=== PATIENT | male | born 1980 | race African-American/Black ===

== ENCOUNTER 2016-10-31 19:24 | Emergency (ER) | payer BC ==
[~2016-10-31] VITALS: Ht 172.7 cm; Wt 86.2 kg
--- NOTE | ~2016-10-31 | EKG ---
[place] [address] [address] [facility] [place] [address] ELECTROCARDIOGRAM REPORT Name: ADDIEEMETERIO Sarah [facility] [id number] Admission: 10/31/16 Attend Phys: Discharge: 10/31/16 Date of : 82 Report #: [id number] THIS REPORT FOR: //name// [facility] ED Test Date: 2016-10-31 Test Time: 19:59:17 Pat Name: EMETERIO REAL Department: Room: Gender: Frit Mixer: MZOOK : 1980 Requested By: Kd Bruner Order Number: [id number] MD: Jeremias May Measurements Intervals [place] Rate: 74 P: 48 [place]: 161 QRS: 7 QRSD: 108 T: 19 QT: 367 QTc: 408 Interpretive Statements Sinus rhythm No significant abnormality Compared to ECG 06/17/2016 21:10:45 T-wave abnormality no longer present Electronically Signed On 11-01-2016 7:51:14 CDT by Jeremias May [email or web address] <ELECTRONICALLY SIGNED> By: Jeremias May MD, [facility] 11/01/16 0751 1959 58 Jeremias May MD, FACC /EPI
[~2016-10-31 19:24] MED LIST: AMLODIPINE BESY10 MG PO; AMOXICILLIN875 MG PO; ASPIRIN325; EXCEDRIN CAPLE1 EACH PO; HYDROCHLOROTHIA25 M2 PO; IBUPROFEN 200200 M1; LISINOPRIL20 MG PO; NOHOMEMEDICATIONS; NORCO 5-325 TA1 EACH PO; PEPCID20 MG PO; TYLENOL325 MG PO; ULTRAM 50MG TAB50 MG PO; VENTOLIN HFA 1818 GM INH
[2016-10-31 20:01] LABS: ABSOLUTE NEUTROPHILS 5.3 thou/uL (1.4-8.2); BASOPHILS 0.4 % (0.0-2.0); EOSINOPHILS 2.7 % (0.0-3.0); HEMATOCRIT 41.3 % (42.0-52.0); HEMOGLOBIN 14.3 gm/dL (14.0-18.0); LYMPHOCYTES 30.7 % (24.0-44.0); MANUAL DIFF NO; MCH 29.4 pg (26.0-34.0); MCHC 34.6 g/dL (28.0-37.0); MCV 84.8 fL (80.0-100.0); MONOCYTES 9.5 % (1.0-8.0); PLATELET COUNT 231 thou/uL (150-400); POLYS 56.7 % (36.0-66.0); RBC 4.88 mil/uL (4.50-6.00); WBC 9.3 thou/uL (4.0-11.0)
[2016-10-31 20:12] LABS: ANION GAP 9 mmol/L (7-16); BUN 18 mg/dL (7-18); CHLORIDE 102 mmol/L (98-107); CO2 25 mmol/L (21-32); CREATININE 1.5 mg/dL (0.6-1.3); GLUCOSE 108 mg/dL (70-99); SODIUM 136 mmol/L (136-145)
[2016-10-31 20:19] LABS: ALBUMIN 3.5 g/dL (3.4-5.0); ALKALINE PHOSPHATASE 89 U/L (46-116); MAGNESIUM 2.1 mg/dL (1.8-2.4); SGOT 34 U/L (15-37); SGPT 40 U/L (30-65); TOTAL BILIRUBIN 0.5 mg/dL (<0.1-1.0); TOTAL PROTEIN 7.5 g/dL (6.4-8.2); TROPONIN-I < 0.04 ng/mL (<0.04-0.07)
[2016-10-31] MEDS ORDERED: ZESTRIL20 MG PO (21:17)
[2016-10-31] MEDS ORDERED: NORVASC10 MG PO (21:17)
== END 2016-10-31 21:36 | disposition home or self-care (01) ==
LOC: ER 19:24
PROVIDERS: Emergency Medicine
DX: S06.0X9A Concussion with loss of consciousness of unspecified duration, initial encounter (principal); I10 Essential (primary) hypertension; N28.9 Disorder of kidney and ureter, unspecified; F17.210 Nicotine dependence, cigarettes, uncomplicated; Z88.6 Allergy status to analgesic agent; W22.8XXA Striking against or struck by other objects, initial encounter; Y93.89 Activity, other specified; Y92.89 Other specified places as the place of occurrence of the external cause; Y99.8 Other external cause status

== ENCOUNTER 2017-07-16 18:45 | Emergency (ER) | payer OTHER ==
[~2017-07-16] VITALS: Ht 177.8 cm; Wt 111.1 kg
[~2017-07-16 18:45] MED LIST changes: +NORVASC10 MG PO; +ZESTRIL20 MG PO
[2017-07-16 20:20] LABS: ABSOLUTE NEUTROPHILS 5.4 thou/uL (1.4-8.2); BASOPHILS 0.6 % (0.0-2.0); EOSINOPHILS 2.1 % (0.0-3.0); HEMATOCRIT 47.8 % (42.0-52.0); HEMOGLOBIN 16.2 gm/dL (14.0-18.0); LYMPHOCYTES 29.2 % (24.0-44.0); MCH 29.6 pg (26.0-34.0); MCHC 33.9 g/dL (28.0-37.0); MCV 87.3 fL (80.0-100.0); MONOCYTES 9.2 % (1.0-8.0); PLATELET COUNT 194 thou/uL (150-400); POLYS 58.9 % (36.0-66.0); RBC 5.48 mil/uL (4.50-6.00); RDW 13.4 % (10.5-14.5); WBC 9.1 thou/uL (4.0-11.0)
[2017-07-16 20:21] LABS: MANUAL DIFF NO
[2017-07-16 20:26] LABS: CALCIUM 8.9 mg/dL (8.5-10.1); CREATININE 1.5 mg/dL (0.7-1.3); POTASSIUM 3.1 mmol/L (3.5-5.1)
[2017-07-16] MEDS ORDERED: REGLAN 10 MG TA10 MG PO (20:54)
[2017-07-16] MEDS ORDERED: LISINOPRIL20 MG PO (20:54)
== END 2017-07-16 21:16 | disposition home or self-care (01) ==
LOC: ER 18:45
PROVIDERS: Physician Assistant
DX: I10 Essential (primary) hypertension (principal); R51 Headache; F17.210 Nicotine dependence, cigarettes, uncomplicated; Z88.6 Allergy status to analgesic agent

== ENCOUNTER 2017-09-03 18:34 | Inpatient (IN) | payer BC, OTHER ==
[~2017-09-03] VITALS: Ht 182.9 cm; Wt 107.8 kg
--- NOTE | ~2017-09-03 | EKG ---
[address] Room [address] [place] [address] ELECTROCARDIOGRAM REPORT Name: REALEMETERIO Room #: 205-P ADM IN M.R.#: [id number] Admission: 09/03/17 Attend Phys: Alexy Ruiz Discharge: Date of : 82 Report #: [id number] THIS REPORT FOR: //name// [facility] ED Test Date: 2017-09-03 Test Time: 18:51:27 Pat Name: EMETERIO REAL Department: Room: [facility] Gender: M Insurance Follow Up Representative: Graeme OWENS : 1980 Requested By: Megan Álvarez Order Number: [id number] MD: Toni Reyes Measurements Intervals [place] Rate: 68 P: 52 [place]: 148 QRS: 6 QRSD: 118 T: 76 QT: 403 QTc: 429 Interpretive Statements Sinus rhythm Left atrial enlargement Incomplete right bundle branch block Nonspecific T abnormalities, lateral leads Electronically Signed On 09-04-2017 7:45:22 HISTORY FACULTY MEMBER by Toni Reyes [email or web address] <ELECTRONICALLY SIGNED> By: Toni Reyes MD 09/04/17 0745 [id number] [id number] MD ART Mackenzie
--- NOTE | ~2017-09-03 | 2DMMODE ---
[facility] [address] [place] [address] 2 D/M-MODE ECHOCARDIOGRAM Name: EMETERIO REAL Room #: 205-P [facility] IN ..#: [id number] Admission: 09/03/17 Attend Phys: Alexy Austin Discharge: Date of : 82 Date of Service: 09/04/17 1019 Report #: [id number] THIS REPORT FOR: //name// APPROVED REPORT Study performed: 09/04/2017 09:32:14 EXAM: Comprehensive 2D, Doppler, and color-flow Echocardiogram Patient Location: Bedside Room #: [facility] Status: routine BSA: 2.31 HR: 67 bpm BP: 133/94 mmHg Other Information Study Quality: Good Indications Hypertension/HDD 2D Dimensions RVDd: 39.24 mm LVEF(%): 67.34 (>50%) IVSd: 13.89 (7-11mm) LVOT Diam: 20.67 (18-24mm) LVDd: 49.06 mm PWd: 14.46 (7-11mm) Ascending Ao: 31.94 (22-36mm) LVDs: 30.67 (25-40mm) Aortic Root: 31.37 mm IVC: 14.00 mm Mckeon's LVEF: 67.34 % Volumes Left Atrial Volume (Systole) Single Plane 4CH: 57.11 mL Single Plane 2CH: 52.26 mL LA ESV Index: 27.00 mL/m2 Aortic Valve AoV Peak Pal.: 1.55 m/s AO Peak Gr.: 9.63 mmHg LVOT Max P.49 mmHg LVOT Max V: 1.37 m/s GAURANG Vmax: 2.96 cm2 Mitral Valve E/A Ratio: 1.3 MV Decel. Time: 255.34 ms MV E Max Pal.: 0.70 m/s [facility] [employer] [place] [address] 2 D/M-MODE ECHOCARDIOGRAM Name: EMETERIO REAL Room #: 205-P [facility] IN ..#: [id number] Admission: 09/03/17 Attend Phys: Alexy Austin Discharge: Date of : 82 Date of Service: 09/04/17 1019 Report #: [id number] MV A Pal.: 0.53 m/s MV PHT: 74.05 ms IVRT: 83.04 ms Pulmonary Valve PV Peak Pal.: 1.11 m/s PV Peak Gr.: 4.94 mmHg Pulmonary Vein P Vein S: 0.50 m/s P Vein A: 0.21 m/s P Vein D: 0.24 m/s P Vein A Dur.: 120.0 msec P Vein S/D Ratio: 2.08 Left Ventricle The left ventricle is normal size. Mild concentric left ventricular hypertrophy. The left ventricular systolic function is normal. The left ventricular ejection fraction is within the normal range. LVEF is 55-60%. The left ventricular diastolic function is normal. Right Ventricle The right ventricle is normal size. The right ventricular systolic function is normal. Atria The left atrium size is normal. The right atrium size is normal. Aortic Valve The aortic valve is normal in structure. No aortic regurgitation is present. There is no aortic valvular stenosis. Mitral Valve The mitral valve is normal in structure. Trace mitral regurgitation. No evidence of mitral valve stenosis. Tricuspid Valve The tricuspid valve is normal in structure. There is no tricuspid valve regurgitation noted. Pulmonic Valve The pulmonary valve is normal in structure. There is no pulmonic valvular regurgitation. Great Vessels The aortic root is normal in size. IVC is normal in size and collapses >50% with inspiration. [address] [address] 2 D/M-MODE ECHOCARDIOGRAM Name: EMETERIO REAL Room #: 205-P [facility] IN ..#: [id number] Admission: 09/03/17 Attend Phys: Alexy Austin Discharge: Date of : 82 Date of Service: 09/04/17 1019 Report #: [id number] Pericardium There is no pericardial effusion. <Conclusion> The left ventricle is normal size. Mild Mod concentric left ventricular hypertrophy. LVEF is 55-60%. The left ventricular diastolic function is normal. The right ventricle is normal size. The left atrium size is normal. The aortic valve is normal in structure. Trace mitral regurgitation. There is no tricuspid valve regurgitation noted. The aortic root is normal in size. There is no pericardial effusion. <ELECTRONICALLY SIGNED> By: Andrey Patel MD, FACC 09/04/17 1019 1019 1019 Andrey Patel MD, FACC /INF
[~2017-09-03 18:34] MED LIST changes: +REGLAN 10 MG TA10 MG PO
[2017-09-03 18:36] VITALS: BP 208/137
[2017-09-03 19:00] LABS: ABSOLUTE NEUTROPHILS 7.1 thou/uL (1.4-8.2); BASOPHILS 0.7 % (0.0-2.0); EOSINOPHILS 1.4 % (0.0-3.0); HEMATOCRIT 45.6 % (42.0-52.0); HEMOGLOBIN 15.6 gm/dL (14.0-18.0); LYMPHOCYTES 24.6 % (24.0-44.0); MCHC 34.2 g/dL (28.0-37.0); MCV 87.7 fL (80.0-100.0); MONOCYTES 6.3 % (1.0-8.0); PLATELET COUNT 271 thou/uL (150-400); RBC 5.21 mil/uL (4.50-6.00); RDW 13.8 % (10.5-14.5); WBC 10.6 thou/uL (4.0-11.0)
[2017-09-03 19:07] LABS: ANION GAP 12 mmol/L (7-16); BUN 17 mg/dL (7-18); CALCIUM 9.1 mg/dL (8.5-10.1); CHLORIDE 102 mmol/L (98-107); CO2 25 mmol/L (21-32); CREATININE 1.6 mg/dL (0.7-1.3); GLUCOSE 102 mg/dL (74-106); POTASSIUM 3.5 mmol/L (3.5-5.1); SODIUM 139 mmol/L (136-145)
[2017-09-03 19:16] LABS: TROPONIN-I < 0.04 ng/mL (<0.06)
[2017-09-03 19:30] LABS: ALBUMIN 3.8 g/dL (3.4-5.0); DIRECT BILIRUBIN 0.2 mg/dL (<0.1-0.3); TOTAL BILIRUBIN 0.9 mg/dL (<0.1-1.0); TOTAL PROTEIN 7.5 g/dL (6.4-8.2)
[2017-09-03 20:34] LABS: AMP/METHAMP Negative (Negative); BARBITURATES Negative (Negative); BENZODIAZEPINES Negative (Negative); COCAINE Negative (Negative); METHADONE Negative (Negative); OPIATES Negative (Negative); PCP Negative (Negative)
[2017-09-03 21:44] VITALS: BP 166/111
[2017-09-03 21:55] VITALS: BP 196/111
[2017-09-03 23:58] VITALS: BP 165/97
[2017-09-04] VITALS (7 sets, daily range): BP systolic 133–159; BP diastolic 81–105
[2017-09-04 05:26] LABS: CHOLESTEROL 157 mg/dL (<200); HDL CHOLESTEROL 31 mg/dL (>40); LDL CHOLESTEROL 85 mg/dL (<100); TC:HDL 5.1 Ratio (Not establshd); TRIGLYCERIDE 209 mg/dL (<150); VLDL 42 mg/dL (<40)
[2017-09-04 05:27] LABS: SERUM ASSESSMENT Clear
[2017-09-05 04:14] LABS: HEMATOCRIT 47.4 % (42.0-52.0); HEMOGLOBIN 16.3 gm/dL (14.0-18.0); MCH 29.9 pg (26.0-34.0); MCHC 34.3 g/dL (28.0-37.0); MCV 87.2 fL (80.0-100.0); RBC 5.44 mil/uL (4.50-6.00); RDW 13.6 % (10.5-14.5); WBC 10.1 thou/uL (4.0-11.0)
[2017-09-05 04:29] LABS: CALCIUM 8.5 mg/dL (8.5-10.1); CREATININE 1.5 mg/dL (0.7-1.3); POTASSIUM 3.5 mmol/L (3.5-5.1)
[2017-09-05 04:32] VITALS: BP 151/90
[2017-09-05 08:37] VITALS: BP 139/78
[2017-09-05 11:35] VITALS: BP 147/103
[2017-09-05 15:30] VITALS: BP 164/106
[2017-09-05 20:10] VITALS: BP 153/105
[2017-09-05 23:59] VITALS: BP 150/92
[2017-09-06 05:04] VITALS: BP 153/99
[2017-09-06 07:58] VITALS: BP 131/88
[2017-09-06] MEDS ORDERED: CARDURA4 MG PO ×2 (10:27)
[2017-09-06] MEDS ORDERED: LISINOPRIL10 MG PO ×2 (10:27)
[2017-09-06 11:22] VITALS: BP 131/88
[2017-09-06 11:32] VITALS: BP 136/89
== END 2017-09-06 12:40 | disposition home or self-care (01) | DRG 305 ==
LOC: ER 18:34 → 2N 20:41 → EROBS 20:41 → 2N 21:41
PROVIDERS: Emergency Medicine; Hospitalist; Nurse Practitioner; Physician Assistant
DX: I16.0 Hypertensive urgency (principal); I16.1 Hypertensive emergency; I12.9 Hypertensive chronic kidney disease with stage 1 through stage 4 chronic kidney disease, or unspecified chronic kidney disease; N18.3 Chronic kidney disease, stage 3 (moderate); Z91.19 Patient's noncompliance with other medical treatment and regimen; Z82.49 Family history of ischemic heart disease and other diseases of the circulatory system; Z87.81 Personal history of (healed) traumatic fracture; Z79.899 Other long term (current) drug therapy; Z88.8 Allergy status to other drugs, medicaments and biological substances; Z87.891 Personal history of nicotine dependence; Z28.21 Immunization not carried out because of patient refusal
CPT/HCPCS: 10081

== ENCOUNTER 2017-09-07 09:40 | Emergency (ER) | payer BC, OTHER ==
[~2017-09-07] VITALS: Ht 182.9 cm; Wt 106.1 kg
[~2017-09-07 09:40] MED LIST changes: +CARDURA4 MG PO; +LISINOPRIL10 MG PO
[2017-09-07 11:09] VITALS: BP 128/86
== END 2017-09-07 11:10 | disposition home or self-care (01) ==
LOC: ER 09:40
DX: R04.0 Epistaxis (principal); I10 Essential (primary) hypertension; Z88.6 Allergy status to analgesic agent; Z88.8 Allergy status to other drugs, medicaments and biological substances; Z87.891 Personal history of nicotine dependence

== ENCOUNTER 2017-09-08 10:01 | Emergency (ER) | payer BC, OTHER ==
[~2017-09-08] VITALS: Ht 182.9 cm; Wt 106.1 kg
[2017-09-08 10:56] VITALS: BP 157/98
== END 2017-09-08 11:01 | disposition home or self-care (01) ==
LOC: ER 10:01
DX: R04.0 Epistaxis (principal); J34.89 Other specified disorders of nose and nasal sinuses; I10 Essential (primary) hypertension; Z87.891 Personal history of nicotine dependence; Z88.1 Allergy status to other antibiotic agents

== ENCOUNTER 2019-03-12 09:16 | Emergency (ER) | payer OTHER ==
[~2019-03-12] VITALS: Ht 180.3 cm; Wt 122.0 kg
[2019-03-12 10:53] LABS: ABSOLUTE NEUTROPHILS 3.8 thou/uL (1.4-8.2); HEMATOCRIT 42.9 % (42.0-52.0); HEMOGLOBIN 14.7 gm/dL (14.0-18.0); MCH 29.9 pg (26.0-34.0); MCHC 34.3 g/dL (28.0-37.0); MCV 87.4 fL (80.0-100.0); MONOCYTES 8.1 % (1.0-8.0); PLATELET COUNT 241 thou/uL (150-400); POLYS 55.9 % (36.0-66.0); RBC 4.91 mil/uL (4.50-6.00); RDW 13.3 % (10.5-14.5); WBC 6.7 thou/uL (4.0-11.0)
[2019-03-12 11:04] LABS: ANION GAP 8 mmol/L (7-16); BUN 14 mg/dL (7-18); CALCIUM 9.6 mg/dL (8.5-10.1); CHLORIDE 104 mmol/L (98-107); CO2 27 mmol/L (21-32); CREATININE 1.5 mg/dL (0.7-1.3); GLUCOSE 134 mg/dL (74-106); POTASSIUM 3.7 mmol/L (3.5-5.1); SODIUM 139 mmol/L (136-145)
[2019-03-12 11:13] LABS: ALBUMIN 3.5 g/dL (3.4-5.0); SGOT 33 U/L (15-37); SGPT 42 U/L (30-65); TOTAL BILIRUBIN 0.7 mg/dL (<0.1-1.0); TOTAL PROTEIN 7.1 g/dL (6.4-8.2); TROPONIN-I <0.06 ng/mL (<0.06)
[2019-03-12 12:47] VITALS: BP 167/108
--- NOTE | 2019-03-13 08:02 | EKG ---
[place] [address] [facility] [facility] [place] [address] ELECTROCARDIOGRAM REPORT Name: ADDIEEMETERIO Sarah [facility] [id number] ������������������ Admission: 03/12/19 ������������������ Attend Phys: Discharge: 03/12/19 ������������������ Date of : 82 Report #: [id number] ����������������������������������������������������������������� [id number] THIS REPORT FOR: //name// [facility] ED Test Date: 2019-03-12 Test Time: 09:16:00 Pat Name: EMETERIO REAL Department: Room: Gender: Clinic Assistant: JANA : 1980 Requested By: Kasandra Fletcher Order Number: [id number] MD: Jeremias May Measurements Intervals [place] Rate: 64 P: 32 [place]: 166 QRS: -1 QRSD: 90 T: 48 QT: 380 QTc: 392 Interpretive Statements Sinus rhythm Nonspecific T wave abnormality Compared to ECG 09/03/2017 18:51:27 No significant change was found Electronically Signed On 03-13-2019 8:02:22 CDT by Jeremias May [email or web address] ��������������������������������������������� <ELECTRONICALLY SIGNED> ���������������������������������������� By: Jeremias May MD, [facility] ��������������������������������������������� 03/13/19801 5 5 Jeremias May MD, FACC /EPI
== END 2019-03-12 12:47 | disposition home or self-care (01) ==
LOC: ER 09:16
PROVIDERS: Physician Assistant
DX: R07.89 Other chest pain (principal); R06.02 Shortness of breath; R51 Headache; I10 Essential (primary) hypertension; F17.210 Nicotine dependence, cigarettes, uncomplicated; Z88.6 Allergy status to analgesic agent; Z88.8 Allergy status to other drugs, medicaments and biological substances; Z79.899 Other long term (current) drug therapy

== ENCOUNTER 2019-04-09 09:02 | Emergency (ER) | payer OTHER ==
[~2019-04-09] VITALS: Ht 180.3 cm; Wt 125.2 kg
[2019-04-09] MEDS ORDERED: KAPSPARGO SPRIN50 MG PO (09:15)
[2019-04-09 09:53] LABS: WBC 7.4 thou/uL (4.0-11.0)
[2019-04-09 09:55] LABS: ABSOLUTE NEUTROPHILS 4.3 thou/uL (1.4-8.2); BASOPHILS 0.6 % (0.0-2.0); EOSINOPHILS 2.4 % (0.0-3.0); HEMATOCRIT 42.6 % (42.0-52.0); HEMOGLOBIN 14.7 gm/dL (14.0-18.0); LYMPHOCYTES 29.7 % (24.0-44.0); MCH 30.2 pg (26.0-34.0); MCHC 34.6 g/dL (28.0-37.0); MCV 87.3 fL (80.0-100.0); MONOCYTES 9.3 % (1.0-8.0); PLATELET COUNT 245 thou/uL (150-400); RBC 4.88 mil/uL (4.50-6.00); RDW 13.5 % (10.5-14.5)
[2019-04-09 09:58] LABS: ANION GAP 8 mmol/L (7-16); BUN 16 mg/dL (7-18); CALCIUM 9.1 mg/dL (8.5-10.1); CHLORIDE 102 mmol/L (98-107); CO2 29 mmol/L (21-32); CREATININE 1.5 mg/dL (0.7-1.3); GLUCOSE 135 mg/dL (74-106); POTASSIUM 3.7 mmol/L (3.5-5.1); SODIUM 139 mmol/L (136-145)
[2019-04-09 10:09] LABS: ALBUMIN 3.7 g/dL (3.4-5.0); MAGNESIUM 2.1 mg/dL (1.8-2.4); SGOT 30 U/L (15-37); SGPT 42 U/L (30-65); TOTAL PROTEIN 7.8 g/dL (6.4-8.2); TROPONIN-I <0.06 ng/mL (<0.06)
[2019-04-09] MEDS ORDERED: REGLAN 10 MG TA10 MG PO (11:19)
[2019-04-09 11:30] VITALS: BP 168/103
--- NOTE | 2019-04-10 08:30 | EKG ---
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: madina : 1980 Requested By: Kd Bruner Order Number: [id number] MD: Toni Reyes Measurements Intervals [place] Rate: 54 P: 24 [place]: 165 QRS: 3 QRSD: 99 T: 17 QT: 420 QTc: 398 Interpretive Statements Sinus rhythm Nonspecific T abnormalities, lateral leads Borderline ST elevation, anterior leads Baseline wander in lead(s) V1 Compared to ECG 03/12/2019 09:16:00 ST (T wave) deviation now present T-wave abnormality still present Electronically Signed On 04-10-2019 8:30:43 CDT by Toni Reyes [email or web address] <ELECTRONICALLY SIGNED> By: Toni Reyes MD [birth year]/10[birth year]1930 Toni Reyes MD /EPI
== END 2019-04-09 11:30 | disposition home or self-care (01) ==
LOC: ER 09:02
PROVIDERS: Emergency Medicine
DX: G43.909 Migraine, unspecified, not intractable, without status migrainosus (principal); R06.02 Shortness of breath; I10 Essential (primary) hypertension; Z88.6 Allergy status to analgesic agent; Z87.891 Personal history of nicotine dependence

== ENCOUNTER 2019-06-28 11:17 | Emergency (ER) | payer OTHER ==
[~2019-06-28] VITALS: Ht 180.3 cm; Wt 122.9 kg
[~2019-06-28 11:17] MED LIST changes: +KAPSPARGO SPRIN50 MG PO
[2019-06-28 11:49] LABS: BASOPHILS 0.6 % (0.0-2.0); EOSINOPHILS 1.9 % (0.0-3.0); HEMATOCRIT 45.2 % (42.0-52.0); HEMOGLOBIN 15.3 gm/dL (14.0-18.0); LYMPHOCYTES 24.1 % (24.0-44.0); MCH 30.1 pg (26.0-34.0); MCV 88.6 fL (80.0-100.0); MONOCYTES 8.2 % (1.0-8.0); PLATELET COUNT 265 thou/uL (150-400); POLYS 65.2 % (36.0-66.0); RDW 12.9 % (10.5-14.5); WBC 10.7 thou/uL (4.0-11.0)
[2019-06-28 11:55] LABS: CREATININE 1.6 mg/dL (0.7-1.3); POTASSIUM 3.5 mmol/L (3.5-5.1)
[2019-06-28 12:01] LABS: ALBUMIN 3.6 g/dL (3.4-5.0); TOTAL BILIRUBIN 0.8 mg/dL (<0.1-1.0); TOTAL PROTEIN 7.7 g/dL (6.4-8.2)
[2019-06-28 12:32] LABS: URINE BILIRUBIN NEGATIVE (Negative); URINE BLOOD 3+ (Negative); URINE CLARITY CLEAR; URINE COLOR YELLOW; URINE GLUCOSE-RANDOM* NEGATIVE (Negative); URINE KETONES NEGATIVE (Negative); URINE LEUKOCYTES-REFLEX NEGATIVE (Negative); URINE NITRITE-REFLEX NEGATIVE (Negative); URINE PROTEIN (DIPSTICK) 2+ (Negative); URINE SPECIFIC GRAVITY 1.025 (1.005-1.035); URINE UROBILINOGEN 0.2 E.U./dl (0.2-1.0)
[2019-06-28 12:44] LABS: BACTERIA-REFLEX 1-9 Few /HPF (None Seen); CASTS None Seen /LPF (None Seen); CRYSTALS None Seen /LPF (None Seen); SQUAMOUS 0-3 Few /LPF (0-3); URINE WBC-REFLEX 0-5 Rare /HPF (0-5)
[2019-06-28] MEDS ORDERED: NORCO 5-325 TA1 EAC1 PO (14:17)
[2019-06-28] MEDS ORDERED: ONDANSETRON HCL4 M2 PO (14:17)
[2019-06-28 14:40] VITALS: BP 132/85
== END 2019-06-28 14:40 | disposition home or self-care (01) ==
LOC: EDBD 11:17 → ER 11:17
PROVIDERS: Physician Assistant
DX: N20.0 Calculus of kidney (principal); R11.2 Nausea with vomiting, unspecified; I10 Essential (primary) hypertension; Z88.6 Allergy status to analgesic agent; Z88.8 Allergy status to other drugs, medicaments and biological substances; Z87.891 Personal history of nicotine dependence

== ENCOUNTER 2020-02-03 21:11 | Emergency (ER) | payer OTHER ==
[~2020-02-03] VITALS: Ht 180.3 cm; Wt 122.5 kg
[~2020-02-03 21:11] MED LIST changes: +NORCO 5-325 TA1 EAC1 PO; +ONDANSETRON HCL4 M2 PO
[2020-02-03] MEDS ORDERED: NAPROSYN500 MG PO (22:43)
[2020-02-03] MEDS ORDERED: TRAMADOL 50 MG50 MG PO (22:43)
[2020-02-03 23:13] VITALS: BP 172/108
== END 2020-02-03 23:11 | disposition home or self-care (01) ==
LOC: ER 21:11
DX: J03.90 Acute tonsillitis, unspecified (principal); J06.9 Acute upper respiratory infection, unspecified; Z20.828 Contact with and (suspected) exposure to other viral communicable diseases; I10 Essential (primary) hypertension; Z79.899 Other long term (current) drug therapy; Z88.8 Allergy status to other drugs, medicaments and biological substances; Z87.891 Personal history of nicotine dependence

== ENCOUNTER 2020-12-06 10:08 | Emergency (ER) | payer OTHER ==
[~2020-12-06] VITALS: Ht 180.3 cm; Wt 113.4 kg
[~2020-12-06 10:08] MED LIST changes: +NAPROSYN500 MG PO; +TRAMADOL 50 MG50 MG PO
[2020-12-06] MEDS ORDERED: TOPROL XL25 MG PO (10:48)
[2020-12-06 12:32] VITALS: BP 167/112
--- NOTE | 2020-12-06 13:04 | EKG ---
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: MANJINDER : 1980 Requested By: Ever Guillen Order Number: [id number] MD: Stephen Gibbs Measurements Intervals [place] Rate: 79 P: 42 [place]: 162 QRS: -14 QRSD: 105 T: 171 QT: 416 QTc: 477 Interpretive Statements Sinus rhythm Probable left atrial enlargement Abnormal R-wave progression, early transition LVH with secondary repolarization abnormality Borderline prolonged QT interval Compared to ECG 04/09/2019 09:48:11 Left ventricular hypertrophy now present Early repolarization now present T-wave abnormality no longer present ST (T wave) deviation no longer present Electronically Signed On 12-06-2020 13:04:28 CDT by Stephen iGbbs [email or web address] <ELECTRONICALLY SIGNED> By: Stephen Gibbs MD, [facility] 12/06/20 1304 1019 1019 Stephen Gibbs MD, [facility] /EPI
== END 2020-12-06 12:42 | disposition home or self-care (01) ==
LOC: ER 10:08
DX: I10 Essential (primary) hypertension (principal); E11.9 Type 2 diabetes mellitus without complications; Z87.891 Personal history of nicotine dependence; Z88.8 Allergy status to other drugs, medicaments and biological substances; Z79.899 Other long term (current) drug therapy